=== PATIENT | male | born 1985 ===

== ENCOUNTER 2021-09-09 18:20 | Emergency (ER) | payer SELFPAY ==
[~2021-09-09] VITALS: Ht 185.4 cm; Wt 72.7 kg
[2021-09-09 18:23] VITALS: BP 119/74
== END 2021-09-09 19:53 | disposition left against medical advice (07) ==
LOC: EMS 18:23
DX: R50.9 Fever, unspecified (principal); Z53.21 Procedure and treatment not carried out due to patient leaving prior to being seen by health care provider